=== PATIENT | male | born 1985 | race Caucasian/White ===

== ENCOUNTER → 2022-10-12 10:07 | Outpatient (CLI) | payer OTHER, SELFPAY ==
--- NOTE | 2022-10-12 10:24 | XR_ITS ---
FINAL REPORT CLINICAL HISTORY: ARTHRITIS,STRESS FX FINDINGS: Left hand Two views were obtained. There is no acute fracture or dislocation. The joint spaces appear normal. No soft tissue abnormality is identified. IMPRESSION: No acute process. Reviewed, Interpreted and Dictated by Kadie Rudolph MD Transcribed by Melissa Henry Authenticated and [facility]
--- NOTE | 2022-10-12 10:24 | XR_ITS ---
FINAL REPORT CLINICAL HISTORY: ARTHRITIS,STRESS FX FINDINGS: Left foot Two views were obtained. There is no acute fracture or dislocation. The joint spaces appear normal. No soft tissue abnormality is identified. IMPRESSION: No acute process. Reviewed, Interpreted and Dictated by Kadie Rudolph MD Transcribed by Melissa Henry Authenticated and [facility]
--- NOTE | 2022-10-12 10:24 | XR_ITS ---
FINAL REPORT CLINICAL HISTORY: ARTHRITIS,STRESS FX FINDINGS: Right foot Two views were obtained. There is no acute fracture or dislocation. The joint spaces appear normal. There is diffuse calcific density along the dorsal lateral distal tibia, likely reflecting old injury. IMPRESSION: No acute process. Reviewed, Interpreted and Dictated by Kadie Rudolph MD Transcribed by Melissa Henry Authenticated and [facility]
--- NOTE | 2022-10-12 10:24 | XR_ITS ---
FINAL REPORT CLINICAL HISTORY: ARTHRITIS,STRESS FX FINDINGS: Right hand Two views were obtained. There is no acute fracture or dislocation. The joint spaces appear normal. No soft tissue abnormality is identified. IMPRESSION: No acute process. Reviewed, Interpreted and Dictated by Kadie Rudolph MD Transcribed by Melissa Henry Authenticated and [facility]
== END ==
PROVIDERS: PCP Chiropractor; Visit Provider Chiropractor
DX: M79.671 Pain in right foot (principal); M79.672 Pain in left foot; M79.641 Pain in right hand; M79.642 Pain in left hand; M13.80 Other specified arthritis, unspecified site
CPT/HCPCS: 73120; 73620